=== PATIENT | female | born 2000 | race Caucasian/White ===

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

== ENCOUNTER 2019-07-08 16:24 | Inpatient (IN) | payer BC, MEDICAID ==
[2019-07-08 16:45] LABS: CHLORIDE,CL 104 mEq/L (98-106); SODIUM,NA 138 mEq/L (136-145)
[2019-07-08] MEDS ORDERED: ACETAMINOPHEN WITH CODEINE PO PRN (17:11)
[2019-07-08] MEDS ORDERED: Non-Formulary Medication 1 Each (Ondansetron 8 MG) PO PRN (17:11)
[2019-07-08] MEDS ORDERED: [UNRECOGNIZED DRUG - OTHER] PO PRN (17:11)
[2019-07-08] MEDS ORDERED: Albuterol 8 GM Inhaler INH PRN (17:11)
[2019-07-08] MEDS ORDERED: Ibuprofen 200 MG Tab PO PRN (17:11)
[2019-07-08] MEDS ORDERED: Albuterol 0.083% 2.5 MG/3 ML Neb Soln INH PRN (17:11)
[2019-07-08] MEDS ORDERED: SUMATRIPTAN 50 MG PO SCH (17:15)
[2019-07-08] MEDS ORDERED: cefTRIAXone 1 GM Vial IVPUSH ONE (17:16)
[2019-07-08] MEDS: Pantoprazole 40 MG Vial IVPUSH SCH (17:37)
[2019-07-08] MEDS: Sodium Chloride 0.9% 1,000 ML IV SCH (17:37)
[2019-07-08] MEDS ORDERED: VALACYCLOVIR HCL PO PRN (18:42)
[2019-07-08] MEDS: [UNRECOGNIZED DRUG - REMARK] NAS SCH (19:58)
[2019-07-08] MEDS ORDERED: RANITIDINE HCL PO SCH (20:00)
[2019-07-08] MEDS ORDERED: Gabapentin 100 MG Cap PO SCH (20:00)
[2019-07-09] MEDS: Sodium Chloride 0.9% 1,000 ML IV SCH ×4 (01:28→23:54)
[2019-07-09] MEDS ORDERED: VALACYCLOVIR HCL PO SCH (08:00)
[2019-07-09] MEDS ORDERED: METHYLPHENIDATE HCL 30 MG PO SCH (08:00)
[2019-07-09] MEDS: Ondansetron 4 MG/2 ML SDV IV PRN ×3 (08:21→17:11)
[2019-07-09] MEDS: fentaNYL 100 MCG/2 ML SDV IVPUSH PRN ×3 (08:24→17:35)
[2019-07-09] MEDS: METHYLPHENIDATE 30 MG PO SCH (08:46)
[2019-07-09] MEDS: Venlafaxine 75 MG Cap.ER PO SCH (08:46)
[2019-07-09] MEDS: Gabapentin 100 MG Cap PO SCH ×5 (08:46→19:55)
[2019-07-09] MEDS: MELOXICAM 15 MG PO SCH (08:47)
[2019-07-09] MEDS: MUPIROCIN TOP SCH ×3 (08:48→19:51)
--- NOTE | 2019-07-09 10:13 | PCM.PN ---
- General Info Date of Service: 07/09/19 Admission Dx/Problem (Free Text): RUQ pain Functional Status: Reports: Tolerating Diet, Ambulating, Urinating. Denies: Pain Controlled - Review of Systems General: Reports: Fever, Malaise HEENT: Reports: No Symptoms Pulmonary: Denies: Shortness of Breath, Cough Cardiovascular: Denies: Chest Pain, Edema, Lightheadedness Gastrointestinal: Reports: Abdominal Pain, Nausea. Denies: Decreased Appetite, Diarrhea, Vomiting Genitourinary: Denies: Dysuria Musculoskeletal: Reports: No Symptoms Skin: Reports: No Symptoms Neurological: Reports: No Symptoms - Patient Data Vitals - Most Recent: Last Vital Signs Temp 99.5 F 07/09/19 08:00 Pulse 89 07/09/19 08:00 Resp 16 07/09/19 08:00 BP 105/67 07/09/19 08:00 Pulse Ox 99 07/09/19 08:00 Weight - Most Recent: 162 lb I&O - Last 24 Hours: Intake & Output 07/08/19 07/09/19 07/09/19 22:59 06:59 14:59 Intake Total 981 867 Balance 981 867 Lab Results Last 24 Hours: Laboratory Results - last 24 hr 07/08/19 07/08/19 07/08/19 Range/Units 16:28 16:28 16:28 WBC 5.5 (5.0-10.0) 10^3/uL RBC 4.57 (4.00-5.50) 10^6/uL Hgb 14.1 (12.0-16.0) g/dL Hct 41.9 (37.0-47.0) % MCV 91.7 (82.0-94.0) fL MCH 30.9 (27.0-32.0) pg MCHC 33.7 (33.0-38.0) g/dL RDW Coeff of Ana María 13.0 (11.0-15.0) % Plt Count 269 (150-400) 10^3/uL Neut % (Auto) 47.5 (35-85) % Lymph % (Auto) 39.1 (10-55) % Butler % (Auto) 12.1 (0-16) % Eos % (Auto) 1.1 (0-5) % Baso % (Auto) 0.2 (0-3) % Neut # (Auto) 2.62 (1.80-7.00) 10^3/uL Lymph # (Auto) 2.16 (1.00-4.80) 10^3/uL Butler # (Auto) 0.67 (0.00-0.80) 10^3/uL Eos # (Auto) 0.06 (0.00-0.45) 10^3/uL Baso # (Auto) 0.01 10^3/uL Sodium 138 (136-145) mEq/L Potassium 4.3 (3.5-5.0) mEq/L Chloride 104 (98-106) mEq/L Carbon Dioxide 27 (21-32) mmol/L BUN 13 (7-18) mg/dL Creatinine 0.7 (0.6-1.0) mg/dL Est Cr Clr Drug Dosing TNP Estimated GFR (MDRD) > 60 (>=60) mL/min Glucose 92 (75-99) mg/dL Calcium 9.3 (8.4-10.1) mg/dL Total Bilirubin 0.1 (0.0-1.0) mg/dL AST 23 (15-37) U/L ALT 36 (12-78) U/L Alkaline Phosphatase 82 (46-116) U/L C-Reactive Protein 4.9 H (0.2-0.8) mg/dL Total Protein 7.5 (6.4-8.2) g/dL Albumin 3.9 (3.4-5.0) g/dL Amylase 61 (25-115) U/L Urine Color Yellow (YELLOW) Urine Appearance Clear (CLEAR) Urine pH 6.0 (4.5-8.0) Ur Specific Riner 1.025 H (1.003-1.020) Urine Protein Negative (NEGATIVE) mg/dL Urine Glucose (UA) Negative (NEGATIVE) mg/dL Urine Ketones Negative (NEGATIVE) mg/dL Urine Occult Blood Trace-intact H (NEGATIVE) Urine Nitrite Negative (NEGATIVE) Urine Bilirubin Negative (NEGATIVE) Urine Urobilinogen 0.2 (0.2-1.0) EU/dL Ur Leukocyte Esterase Trace H (NEGATIVE) Urine RBC 0-5 (0-5) /HPF Urine WBC 0-5 (0-5) /HPF Ur Epithelial Cells Moderate H (NOT SEEN) /HPF Urine Bacteria Moderate H (NOT SEEN) /HPF Urine HCG, Qual 07/08/19 07/09/19 07/09/19 Range/Units 16:28 07:00 07:00 WBC 5.2 (5.0-10.0) 10^3/uL RBC 4.12 (4.00-5.50) 10^6/uL Hgb 12.7 (12.0-16.0) g/dL Hct 38.0 (37.0-47.0) % MCV 92.2 (82.0-94.0) fL MCH 30.8 (27.0-32.0) pg MCHC 33.4 (33.0-38.0) g/dL RDW Coeff of Ana María 13.0 (11.0-15.0) % Plt Count 242 (150-400) 10^3/uL Neut % (Auto) 48.0 (35-85) % Lymph % (Auto) 36.6 (10-55) % Butler % (Auto) 13.6 (0-16) % Eos % (Auto) 1.4 (0-5) % Baso % (Auto) 0.4 (0-3) % Neut # (Auto) 2.48 (1.80-7.00) 10^3/uL Lymph # (Auto) 1.89 (1.00-4.80) 10^3/uL Butler # (Auto) 0.70 (0.00-0.80) 10^3/uL Eos # (Auto) 0.07 (0.00-0.45) 10^3/uL Baso # (Auto) 0.02 10^3/uL Sodium (136-145) mEq/L Potassium (3.5-5.0) mEq/L Chloride (98-106) mEq/L Carbon Dioxide (21-32) mmol/L BUN (7-18) mg/dL Creatinine (0.6-1.0) mg/dL Est Cr Clr Drug Dosing Estimated GFR (MDRD) (>=60) mL/min Glucose (75-99) mg/dL Calcium (8.4-10.1) mg/dL Total Bilirubin (0.0-1.0) mg/dL AST (15-37) U/L ALT (12-78) U/L Alkaline Phosphatase (46-116) U/L C-Reactive Protein 3.4 H (0.2-0.8) mg/dL Total Protein (6.4-8.2) g/dL Albumin (3.4-5.0) g/dL Amylase (25-115) U/L Urine Color (YELLOW) Urine Appearance (CLEAR) Urine pH (4.5-8.0) Ur Specific Riner (1.003-1.020) Urine Protein (NEGATIVE) mg/dL Urine Glucose (UA) (NEGATIVE) mg/dL Urine Ketones (NEGATIVE) mg/dL Urine Occult Blood (NEGATIVE) Urine Nitrite (NEGATIVE) Urine Bilirubin (NEGATIVE) Urine Urobilinogen (0.2-1.0) EU/dL Ur Leukocyte Esterase (NEGATIVE) Urine RBC (0-5) /HPF Urine WBC (0-5) /HPF Ur Epithelial Cells (NOT SEEN) /HPF Urine Bacteria (NOT SEEN) /HPF Urine HCG, Qual Negative Med Orders - Current: Current Medications Acetaminophen (Tylenol) 650 mg PO Q4H PRN PRN Reason: Pain (Mild 1-3)/fever Albuterol (Proventil Neb Soln) 2.5 mg INH Q4H PRN PRN Reason: Shortness of Breath Fentanyl (Sublimaze) 25 - 50 mcg IVPUSH Q4H PRN PRN Reason: Pain Last Admin: 07/09/19 08:24 Dose: 25 mcg Gabapentin (Neurontin) 200 mg PO TID [facility] Last Admin: 07/09/19 08:49 Dose: Not Given Sodium Chloride (Normal Saline) 1,000 mls @ 125 mls/hr IV ASDIRECTED [facility] Last Admin: 07/09/19 08:24 Dose: 125 mls/hr Ibuprofen (Motrin) 200 mg PO Q6H PRN PRN Reason: Pain/Fever Mupirocin (Bactroban Oint) 0 gm TOP BID [facility] Last Admin: 07/09/19 08:49 Dose: Not Given Ownmed Meloxicam (15 Mg) 15 mg PO DAILY [facility] Last Admin: 07/09/19 08:47 Dose: Not Given Ownmed Methylphenidate Hcl [Ritalin] 30 Mg 30 mg PO DAILY [facility] Last Admin: 07/09/19 08:46 Dose: 30 mg Triamcinolone Acetonide [24 Hour Nasal Allergy] Nasal [place] Own Med 1 spray SHELBY BEDTIME [facility] Last Admin: 07/08/19 19:58 Dose: 1 spray Ondansetron HCl (Zofran) 4 mg IV Q4H PRN PRN Reason: Nausea/Vomiting Last Admin: 07/09/19 08:21 Dose: 4 mg Pantoprazole Sodium (Protonix Iv) 40 mg IVPUSH Q24H [facility] Last Admin: 07/08/19 17:37 Dose: 40 mg Venlafaxine HCl (Effexor Xr) 75 mg PO DAILY [facility] Last Admin: 07/09/19 08:46 Dose: 75 mg Discontinued Medications Albuterol (Ventolin Hfa) gm INH Q4H PRN PRN Reason: Shortness of Breath Ceftriaxone Sodium (Rocephin) 1 gm IVPUSH ONETIME ONE Stop: 07/08/19 17:17 Last Admin: 07/08/19 17:37 Dose: 1 gm Gabapentin (Neurontin) 100 mg PO BID [facility] Non-Formulary Medication (Acetaminophen With Codeine [Tylenol With Codeine #3 Tablet]) 1 tab PO BID PRN PRN Reason: Pain Non-Formulary Medication (Methylphenidate Hcl [Methylphenidate La]) 30 mg PO DAILY [facility] Non-Formulary Medication (Ondansetron) 8 mg PO Q8H PRN PRN Reason: Nausea Non-Formulary Medication (Ranitidine Hcl [Ranitidine]) 1 cap PO BEDTIME [facility] Last Admin: 07/09/19 08:49 Dose: Not Given Non-Formulary Medication (Sumatriptan [Imitrex]) 50 mg PO ASDIRECTED [facility] Non-Formulary Medication (Valacyclovir Hcl [Valacyclovir]) 1 tab PO DAILY [facility] Non-Formulary Medication (Valacyclovir Hcl [Valacyclovir]) 1 tab PO ASDIRECTED PRN PRN Reason: Other - Exam General: Alert, Oriented, No Acute Distress HEENT: Mucous Membr. Moist/[place] Neck: Supple Lungs: Clear to Auscultation, Normal Respiratory Effort Cardiovascular: Regular Rate, Regular Rhythm GI/Abdominal Exam: Normal Bowel Sounds, Soft, Tender (RUQ, right mid quadrant tenderness with palpation) Extremities: Normal Inspection, No Pedal Edema Skin: Warm, Dry Neurological: No New Focal Deficit - Problem List & Annotations (1) RUQ abdominal pain SNOMED Code(s): 393270519 Code(s): R10.11 - RIGHT UPPER QUADRANT PAIN Status: Acute Priority: High Current Visit: Yes - Problem List Review Problem List Initiated/Reviewed/Updated: Yes - My Orders Last 24 Hours: My Active Orders 07/09/19 09:16 Abdomen Pelvis w Cont [CT] Routine - Assessment Assessment:: RUQ abdominal pain - Plan Plan:: Patient alert, states pain a 10/10 at present in RUQ. Does not appear to be in any acute distress, resting on back. Asking for fluids as "is hungry" yet complaining of nausea. Not passing any flatus "but feels like needs to". Low grade temps through the night. Abdomen is soft, nondistended. Tender to minimal touch in RUQ, right mid quadrant. Labs all remain relatively normal this am. WBC 5.2. CRP improved to 3.4. Had gallbladder ultrasound this am, appears benign. Mother questions if "related to anxiety as she has been having one problem after another and has been doctoring a great deal without any positive findings". Questions if needs med adjustments. Due to ongoing complaints of pain, will proceed with CT scan to rule out any organic source of pain. continue clear liquids at this time. IV fluids as directed.
[2019-07-09] MEDS ORDERED: Iopamidol 755 Mg/ML 100 ML Bottle IVPUSH ONE (11:39)
[2019-07-09] MEDS ORDERED: Barium Sulfate Oral Susp 450 ML Bottle PO ONE (11:39)
[2019-07-09] MEDS: Acetaminophen 325 MG Tab PO PRN ×2 (12:42→23:16)
[2019-07-09] MEDS ORDERED: Alum Hydrox/Mag Hydrox/Simeth 30 ML, Lidocaine 2% 15 ML PO ONE ×2 (13:06)
[2019-07-09] MEDS: Acetaminophen/HYDROcodone 325-5 MG Tab PO PRN ×2 (16:49→23:15)
[2019-07-09] MEDS: Pantoprazole 40 MG Vial IVPUSH SCH (16:52)
[2019-07-09] MEDS: [UNRECOGNIZED DRUG - REMARK] NAS SCH (19:52)
[2019-07-10] MEDS: fentaNYL 100 MCG/2 ML SDV IVPUSH PRN (05:50)
[2019-07-10] MEDS ORDERED: Lactated Ringers 1,000 ML IV STA (08:12)
[2019-07-10] MEDS ORDERED: Benzocaine 20% Oral Spray 59.2 ML Canister MUCMEM ONE (08:35)
[2019-07-10] MEDS ORDERED: Meperidine PF 25 MG/ML Syringe IV ONE ×2 (08:47→08:49)
[2019-07-10] MEDS ORDERED: Midazolam 1 MG/ML 2 ML SDV IV ONE (08:48)
[2019-07-10] MEDS: MUPIROCIN TOP SCH ×2 (10:24→19:36)
[2019-07-10] MEDS: Venlafaxine 75 MG Cap.ER PO SCH (10:25)
[2019-07-10] MEDS: MELOXICAM 15 MG PO SCH (10:26)
[2019-07-10] MEDS: METHYLPHENIDATE 30 MG PO SCH (10:27)
[2019-07-10] MEDS: Gabapentin 100 MG Cap PO SCH ×3 (10:27→19:43)
[2019-07-10] MEDS: Pantoprazole 40 MG Vial IVPUSH SCH ×2 (10:28→19:38)
[2019-07-10] MEDS: Sodium Chloride 0.9% 1,000 ML IV SCH ×2 (11:54→20:12)
[2019-07-10] MEDS: Ondansetron 4 MG/2 ML SDV IV PRN ×2 (11:59→21:31)
[2019-07-10] MEDS: Sucralfate 1 GM Tab PO SCH ×3 (12:00→19:45)
[2019-07-10] MEDS: Acetaminophen 325 MG Tab PO PRN (12:08)
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
[2019-07-10] MEDS: [UNRECOGNIZED DRUG - REMARK] NAS SCH (19:37)
[2019-07-10] MEDS ORDERED: FLUoxetine 10 MG Cap PO SCH (20:00)
[2019-07-10] MEDS ORDERED: busPIRone 5 MG Tab PO SCH (20:00)
--- NOTE | 2019-07-10 20:41 | PCM.PN ---
- General Info Date of Service: 07/10/19 Admission Dx/Problem (Free Text): RUQ pain Functional Status: Reports: Tolerating Diet, Ambulating. Denies: Pain Controlled - Review of Systems General: Reports: Fever, Fatigue, Malaise HEENT: Reports: No Symptoms Pulmonary: Denies: Shortness of Breath, Cough Cardiovascular: Denies: Chest Pain, Palpitations, Lightheadedness Gastrointestinal: Reports: Abdominal Pain, Nausea. Denies: Decreased Appetite, Vomiting Genitourinary: Reports: No Symptoms Musculoskeletal: Reports: No Symptoms Skin: Reports: No Symptoms Neurological: Reports: No Symptoms Psychiatric: Reports: Anxiety - Patient Data Vitals - Most Recent: Last Vital Signs Temp 99.5 F 07/10/19 20:00 Pulse 102 H 07/10/19 20:00 Resp 20 07/10/19 20:00 BP 114/76 07/10/19 20:00 Pulse Ox 98 07/10/19 20:00 Weight - Most Recent: 162 lb I&O - Last 24 Hours: Intake & Output 07/10/19 07/10/19 07/10/19 06:59 14:59 22:59 Intake Total 877 1000 1000 Balance 877 1000 1000 Med Orders - Current: Current Medications Acetaminophen (Tylenol) 650 mg PO Q4H PRN PRN Reason: Pain (Mild 1-3)/fever Last Admin: 07/10/19 12:08 Dose: 650 mg Hydrocodone Bitart/Acetaminophen ([place] 325-5 Mg) 1 tab PO Q6H PRN PRN Reason: Pain Last Admin: 07/09/19 23:15 Dose: 1 tab Albuterol (Proventil Neb Soln) 2.5 mg INH Q4H PRN PRN Reason: Shortness of Breath Buspirone HCl (Buspar) 7.5 mg PO BEDTIME JIN Last Admin: 07/10/19 19:42 Dose: 7.5 mg Fentanyl (Sublimaze) 25 - 50 mcg IVPUSH Q4H PRN PRN Reason: Pain Last Admin: 07/10/19 05:50 Dose: 25 mcg Fluoxetine HCl (Prozac) 10 mg PO BEDTIME JIN Stop: 07/12/19 20:01 Last Admin: 07/10/19 19:43 Dose: 10 mg Gabapentin (Neurontin) 200 mg PO TID JIN Last Admin: 07/10/19 19:43 Dose: 200 mg Sodium Chloride (Normal Saline) 1,000 mls @ 125 mls/hr IV ASDIRECTED [facility] Last Admin: 07/10/19 20:12 Dose: 125 mls/hr Mupirocin (Bactroban Oint) 0 gm TOP BID [facility] Last Admin: 07/10/19 19:36 Dose: Not Given Ownmed Meloxicam (15 Mg) 15 mg PO DAILY [facility] Last Admin: 07/10/19 10:26 Dose: Not Given Ownmed Methylphenidate Hcl [Ritalin] 30 Mg 30 mg PO DAILY [facility] Last Admin: 07/10/19 10:27 Dose: 30 mg Triamcinolone Acetonide [24 Hour Nasal Allergy] Nasal [place] Own Med 1 spray SHELBY BEDTIME [facility] Last Admin: 07/10/19 19:37 Dose: 1 spray Ondansetron HCl (Zofran) 4 mg IV Q4H PRN PRN Reason: Nausea/Vomiting Last Admin: 07/10/19 11:59 Dose: 4 mg Pantoprazole Sodium (Protonix Iv) 40 mg IVPUSH BID [facility] Last Admin: 07/10/19 19:38 Dose: 40 mg Sucralfate (Carafate) 1 gm PO QIDACANDBED [facility] Last Admin: 07/10/19 19:45 Dose: 1 gm Discontinued Medications Albuterol (Ventolin Hfa) gm INH Q4H PRN PRN Reason: Shortness of Breath Barium Sulfate (Readi-Cat 2) 900 ml PO ONETIME ONE Stop: 07/09/19 11:40 Last Admin: 07/09/19 11:55 Dose: 900 ml Benzocaine (Hurricaine 20% [place]) 1 ml MUCMEM .STK-MED ONE Stop: 07/10/19 08:36 Last Admin: 07/10/19 08:35 Dose: 1 ml Ceftriaxone Sodium (Rocephin) 1 gm IVPUSH ONETIME ONE Stop: 07/08/19 17:17 Last Admin: 07/08/19 17:37 Dose: 1 gm Al Hydroxide/Mg Hydroxide 30 (ml/ Lidocaine HCl 15 ml) 0 ml PO ONETIME ONE Stop: 07/09/19 13:07 Last Admin: 07/09/19 13:39 Dose: 45 ml Gabapentin (Neurontin) 100 mg PO BID [facility] Lactated Ringer's (Ringers, Lactated) 1,000 mls @ 125 mls/hr IV NOW STA Stop: 07/10/19 16:11 Last Admin: 07/10/19 08:24 Dose: 125 mls/hr Ibuprofen (Motrin) 200 mg PO Q6H PRN PRN Reason: Pain/Fever Iopamidol (Isovue-370 (76%)) 100 ml IVPUSH ONETIME ONE Stop: 07/09/19 11:40 Last Admin: 07/09/19 11:54 Dose: 100 ml Meperidine HCl (Demerol) 25 mg IV .STK-MED ONE Stop: 07/10/19 08:48 Last Admin: 07/10/19 08:47 Dose: 25 mg Meperidine HCl (Demerol) 25 mg IV .STK-MED ONE Stop: 07/10/19 08:50 Last Admin: 07/10/19 08:49 Dose: 25 mg Midazolam HCl (Versed 1 Mg/Ml) 4 mg IV .STK-MED ONE Stop: 07/10/19 08:49 Last Admin: 07/10/19 08:48 Dose: 4 mg Non-Formulary Medication (Acetaminophen With Codeine [Tylenol With Codeine #3 Tablet]) 1 tab PO BID PRN PRN Reason: Pain Non-Formulary Medication (Methylphenidate Hcl [Methylphenidate La]) 30 mg PO DAILY [facility] Non-Formulary Medication (Ondansetron) 8 mg PO Q8H PRN PRN Reason: Nausea Non-Formulary Medication (Ranitidine Hcl [Ranitidine]) 1 cap PO BEDTIME [facility] Last Admin: 07/09/19 08:49 Dose: Not Given Non-Formulary Medication (Sumatriptan [Imitrex]) 50 mg PO ASDIRECTED [facility] Non-Formulary Medication (Valacyclovir Hcl [Valacyclovir]) 1 tab PO DAILY [facility] Non-Formulary Medication (Valacyclovir Hcl [Valacyclovir]) 1 tab PO ASDIRECTED PRN PRN Reason: Other Pantoprazole Sodium (Protonix Iv) 40 mg IVPUSH Q24H [facility] Last Admin: 07/09/19 16:52 Dose: 40 mg Venlafaxine HCl (Effexor Xr) 75 mg PO DAILY [facility] Last Admin: 07/10/19 10:25 Dose: 75 mg - Exam General: Alert, Oriented HEENT: Mucous Membr. Moist/[place] Neck: Supple Lungs: Clear to Auscultation, Normal Respiratory Effort Cardiovascular: Regular Rate, Regular Rhythm GI/Abdominal Exam: Normal Bowel Sounds, Soft, Tender (RUQ. Is less guarded this am with exam) Extremities: Normal Inspection, No Pedal Edema Skin: Warm, Dry Neurological: No New Focal Deficit - Problem List & Annotations (1) RUQ abdominal pain SNOMED Code(s): 763931271 Code(s): R10.11 - RIGHT UPPER QUADRANT PAIN Status: Acute Priority: High Current Visit: Yes - Problem List Review Problem List Initiated/Reviewed/Updated: Yes - My Orders Last 24 Hours: My Active Orders 07/09/19 20:06 Notify Provider Consults [RC] ASDIRECTED Consult to Physician [CONS] Routine 07/10/19 09:05 Patient Status [ADT] Routine 07/10/19 09:15 Pantoprazole [ProTONIX IV] 40 mg IVPUSH BID 07/10/19 11:00 Sucralfate [Carafate] 1 gm PO QIDACANDBED 07/10/19 20:00 FLUoxetine [PROzac] 10 mg PO BEDTIME busPIRone [Buspar] 7.5 mg PO BEDTIME 07/10/19 Lunch Soft Diet [DIET] 07/11/19 08:00 Abdomen wo Cont [MR] Routine - Assessment Assessment:: RUQ abdominal pain - Plan Plan:: Patient alert, states pain a 10/10 at present in RUQ. Does not appear to be in any acute distress, resting on back. Asking for fluids as "is hungry" yet complaining of nausea. Not passing any flatus "but feels like needs to". Low grade temps through the night. Abdomen is soft, nondistended. Tender to minimal touch in RUQ, right mid quadrant. Labs all remain relatively normal this am. WBC 5.2. CRP improved to 3.4. Had gallbladder ultrasound this am, appears benign. Mother questions if "related to anxiety as she has been having one problem after another and has been doctoring a great deal without any positive findings". Questions if needs med adjustments. Due to ongoing complaints of pain, will proceed with CT scan to rule out any organic source of pain. continue clear liquids at this time. IV fluids as directed. 07-10-2019 Patient resting quietly in bed, no acute distress. Still complains of severe pain and nausea. Had multiple complaints yesterday of pain, burning in chest, weakness, increased anxiety. Low grade temps through night. States placed ice pack to abdomen and it has helped. Is NPO this am, awaiting EGD as CT yesterday indicated possible thickening of the gastric cardia/GE junction. Abdomen is soft, tender but she is less guarded today with exam. Not yet passing flatus per patient. Proceed with EGD. Pain meds as directed.
[2019-07-11] MEDS: Sodium Chloride 0.9% 1,000 ML IV SCH (04:26)
[2019-07-11] MEDS: Sucralfate 1 GM Tab PO SCH ×2 (06:09→10:57)
[2019-07-11 07:50] LABS: CHLORIDE,CL 107 mEq/L (98-106); SODIUM,NA 142 mEq/L (136-145)
[2019-07-11] MEDS: Pantoprazole 40 MG Vial IVPUSH SCH (08:14)
[2019-07-11] MEDS: MUPIROCIN TOP SCH (08:14)
[2019-07-11] MEDS ORDERED: Polyethylene Glycol 3350 Powder 17 GM Packet PO ONE (08:29)
[2019-07-11] MEDS: Acetaminophen/HYDROcodone 325-5 MG Tab PO PRN (09:21)
[2019-07-11] MEDS: Gabapentin 100 MG Cap PO SCH ×2 (09:22→13:10)
[2019-07-11] MEDS: MELOXICAM 15 MG PO SCH (09:23)
[2019-07-11] MEDS: METHYLPHENIDATE 30 MG PO SCH (09:25)
--- NOTE | 2019-07-11 12:40 | OR ---
DATE OF OPERATION: 07/10/2019 PREOPERATIVE DIAGNOSIS: RIGHT UPPER QUADRANT PAIN. POSTOPERATIVE DIAGNOSIS: RIGHT UPPER QUADRANT PAIN. SURGEON: Kevin Byers MD PROCEDURE: EGD WITH BIOPSIES X2, LINDA. ANESTHESIA: Conscious sedation with a total of 50 mg fentanyl and 4 mg Versed with continuous O2 sat monitoring nurse assist, oxygen saturation remained above 90% for the entire procedure. COMPLICATIONS: None. SPECIMEN: 1. Antral biopsy x2. 2. Antral LINDA. FINDINGS: 1. Full-length EGD. 2. Minimal antral gastritis. 3. No signs of any significant peptic ulcer disease. RECOMMENDATIONS: Ongoing medical followup. INDICATIONS: Shi was admitted with what she described as severe right upper quadrant pain. Thus far, lab and imaging have failed to give us an etiology including a gallbladder ultrasound. We elected to proceed with diagnostic EGD. DESCRIPTION OF PROCEDURE: The patient was prepped and draped, placed in the left lateral decubitus position. A lubricated Olympus gastroscope was inserted over a bit and advanced to cricopharyngeus area and easily intubated into the esophagus. The esophageal lining was benign in its entire course. The Z-line was crisp and sharp at 39.5 cm. No signs of hiatal hernia. No reflux, distal esophagitis, stricturing, or ulceration. The scope advanced into the stomach, through the pylorus, and into the second portion of the duodenum. This and the duodenal bulb were completely benign. The scope was brought back into the stomach. It was difficult to retroflex as patient was very agitated during the exam, but we were able to get a relatively good but brief look at the upper fundus and cardia. They appeared grossly benign. Upon straightening, the rest of the fundus and antrum were essentially unremarkable. There may have been some very mild antral gastritis. No ulceration or erosions. I did do 2 biopsies along with a CLOtest. No other masses or lesions were seen. Air was suctioned and the scope removed without complication. The patient was stable in her hospital bed in recovery. JONATHAN/JAMARCUS /[id number]
[2019-07-11] MEDS: Ondansetron 4 MG/2 ML SDV IV PRN (13:08)
--- NOTE | 2019-07-11 15:11 | PCM.DCSUM1 ---
Discharge Summary - Hospital Course Free Text/Narrative:: Patient presented to see Dr. Byers with a one day history of RUQ/RLQ abdominal pain. Pain constant. Worsened with eating/drinking and with movement. History of GERD. Has been compliant with her meds. Mild nausea and fever. Labs done, all normal. Admitted for IV fluids, plan for GB ultrasound in am. Diagnosis: Stroke: No Modified [place] Scale: No Symptoms at All Modified [place] Scale Score: 0 - Discharge Data Discharge Date: 07/11/19 Discharge Disposition: Home, Self-Care 01 Condition: Good - Referral to Home Health Primary Care Physician: Kevin Byers MD - Discharge Diagnosis/Problem(s) (1) RUQ abdominal pain SNOMED Code(s): 472620947 ICD Code: R10.11 - RIGHT UPPER QUADRANT PAIN Status: Acute Priority: High - Patient Summary/Data Complications: none Consults: Consultations 07/09/19 20:06 Consult to Physician [CONS] Routine Hospital Course: Patient continues to complain of abdominal pain, especially in the right upper quadrant. Patient did have gallbladder ultrasound, was negative. Proceed with CT scan of abdomen as continued to complain of pain at a 10/08. CT scan showed mild thickening to cardia/GE junction, otherwise normal CT. Proceeded with EGD , minimal gastritis noted. Is on IV protonix. Has been taking IV Fentanyl, [place] and was given GI cocktail, none of which provide the patient any relief. Also complaints of intermittent nausea. Has had low grade fevers. Labs have remained normal throughout stay. As unable to find source of pain, did proceed with MRCP of abdomen, also normal. Mother had felt part of patient's concerns, may be related to anxiety. Did have Lina Jackson consult with patient. Meds switched. Patient asking for second opinion as all tests normal and still complaining of pain. Contacted Dr. Palumbo's office and spoke with nurse. We do feel next step is a HIDA scan but will see surgeon on Sunday for second opinion. Discharge home on Protonix, Mcgregor for the pain. See Dr. Palumbo on Sunday - Patient Instructions Diet: Regular Diet as Tolerated Activity: As Tolerated - Discharge Plan *PRESCRIPTION DRUG MONITORING PROGRAM REVIEWED*: No *COPY OF PRESCRIPTION DRUG MONITORING REPORT IN PATIENT BRITNEY: No Prescriptions/Med Rec: Acetaminophen/HYDROcodone [[place] 325-5 MG] 1 tab PO Q6H PRN #12 tablet PRN Reason: Pain busPIRone [Buspar] 7.5 mg PO BID #30 tab FLUoxetine [PROzac] 10 mg PO BEDTIME #30 cap Pantoprazole Sodium [Protonix] 40 mg PO DAILY #30 tablet. Home Medications: Home Meds Acetaminophen [Tylenol Extra Strength] 500 mg PO Q4H PRN 05/16/18 [History] Albuterol Sulfate 2.5 mg IH ASDIRECTED PRN 05/16/18 [History] Albuterol [Ventolin HFA] 1 - 2 puff INH Q4H PRN 05/16/18 [History] Desonide 1 applic TP DAILY PRN 05/16/18 [History] Ondansetron [Ondansetron ODT] 8 mg PO Q8H PRN 05/16/18 [History] Acetaminophen with Codeine [Tylenol with Codeine #3 Tablet] 1 tab PO BID PRN 08/16 [History] Gabapentin [Neurontin] 2 tab PO TID 07/08/19 [History] Lidocaine 5% 1 applic TOP Q4H PRN 07/08/19 [History] Meloxicam 15 mg PO DAILY 07/08/19 [History] Methylphenidate HCl [Ritalin] 5 mg PO DAILY 07/08/19 [History] Mupirocin Oint [Bactroban Oint] 1 applic TOP BID 07/08/19 [History] Ranitidine HCl [Ranitidine] 1 cap PO BEDTIME 07/08/19 [History] Triamcinolone Acetonide [24 Hour Nasal Allergy] 1 spray SHELBY BEDTIME 07/08/19 [ History] medroxyPROGESTERone Acetate [Depo-Provera] 1 injection IM ASDIRECTED 07/08/19 [ History] Acetaminophen/HYDROcodone [[place] 325-5 MG] 1 tab PO Q6H PRN #12 tablet 07/11/19 [Rx] FLUoxetine [PROzac] 10 mg PO BEDTIME #30 cap 07/11/19 [Rx] Pantoprazole Sodium [Protonix] 40 mg PO DAILY #30 tablet. 07/11/19 [Rx] busPIRone [Buspar] 7.5 mg PO BID #30 tab 07/11/19 [Rx] Patient Handouts: Gastritis, Adult Referrals: Brock Palumbo IV, MD [Ordering Only Provider] - (Has appointment with Dr. Palumbo on Sunday, June 13, 2019) - Discharge Summary/Plan Comment DC Time >30 min.: No Discharge Summary/Plan Comment: Home with mother Protonix for gastritis Mcgregor for pain See Dr. Palumbo on Sunday - General Info Date of Service: 07/11/19 Admission Dx/Problem (Free Text: RUQ pain Functional Status: Reports: Tolerating Diet, Ambulating. Denies: Pain Controlled - Review of Systems General: Denies: Fever, Weakness, Fatigue HEENT: Reports: Sore Throat Pulmonary: Denies: Shortness of Breath, Cough Cardiovascular: Denies: Chest Pain, Edema, Lightheadedness Gastrointestinal: Reports: Abdominal Pain, Nausea. Denies: Vomiting Genitourinary: Reports: No Symptoms Musculoskeletal: Reports: No Symptoms Skin: Reports: No Symptoms Neurological: Reports: No Symptoms Psychiatric: Reports: No Symptoms - Patient Data Vitals - Most Recent: Last Vital Signs Temp 99.1 F 07/11/19 12:00 Pulse 106 H 07/11/19 12:00 Resp 18 07/11/19 12:00 BP 128/94 H 07/11/19 12:00 Pulse Ox 99 07/11/19 12:00 Weight - Most Recent: 162 lb I&O - Last 24 hours: Intake & Output 07/11/19 07/11/19 07/11/19 06:59 14:59 22:59 Intake Total 1000 Balance 1000 Lab Results - Last 24 hrs: Laboratory Results - last 24 hr 07/11/19 07/11/19 Range/Units 07:00 07:00 WBC 4.0 L (5.0-10.0) 10^3/uL RBC 4.26 (4.00-5.50) 10^6/uL Hgb 13.1 (12.0-16.0) g/dL Hct 39.2 (37.0-47.0) % MCV 92.0 (82.0-94.0) fL MCH 30.8 (27.0-32.0) pg MCHC 33.4 (33.0-38.0) g/dL RDW Coeff of Ana María 12.8 (11.0-15.0) % Plt Count 280 (150-400) 10^3/uL Neut % (Auto) 37.9 (35-85) % Lymph % (Auto) 47.3 (10-55) % [place] % (Auto) 13.6 (0-16) % Eos % (Auto) 1.0 (0-5) % Baso % (Auto) 0.2 (0-3) % Neut # (Auto) 1.53 L (1.80-7.00) 10^3/uL Lymph # (Auto) 1.91 (1.00-4.80) 10^3/uL [place] # (Auto) 0.55 (0.00-0.80) 10^3/uL Eos # (Auto) 0.04 (0.00-0.45) 10^3/uL Baso # (Auto) 0.01 10^3/uL Sodium 142 (136-145) mEq/L Potassium 3.8 (3.5-5.0) mEq/L Chloride 107 H (98-106) mEq/L Carbon Dioxide 26 (21-32) mmol/L BUN 4 L D (7-18) mg/dL Creatinine 0.7 (0.6-1.0) mg/dL Est Cr Clr Drug Dosing 110.70 mL/min Estimated GFR (MDRD) > 60 (>=60) mL/min Glucose 93 (75-99) mg/dL Calcium 8.6 (8.4-10.1) mg/dL Total Bilirubin 0.1 (0.0-1.0) mg/dL AST 15 (15-37) U/L ALT 20 (12-78) U/L Alkaline Phosphatase 66 (46-116) U/L C-Reactive Protein 4.5 H (0.2-0.8) mg/dL Total Protein 6.5 (6.4-8.2) g/dL Albumin 3.1 L (3.4-5.0) g/dL MJ Results - Last 24 hrs: Microbiology 07/10/19 09:18 CLOtest - Final Stomach NEGATIVE CLOTEST REFERENCE RANGE: NEGATIVE Med Orders - Current: Current Medications Acetaminophen (Tylenol) 650 mg PO Q4H PRN PRN Reason: Pain (Mild 1-3)/fever Last Admin: 07/10/19 12:08 Dose: 650 mg Hydrocodone Bitart/Acetaminophen ([place] 325-5 Mg) 1 tab PO Q6H PRN PRN Reason: Pain Last Admin: 07/11/19 09:21 Dose: 1 tab Albuterol (Proventil Neb Soln) 2.5 mg INH Q4H PRN PRN Reason: Shortness of Breath Buspirone HCl (Buspar) 7.5 mg PO BEDTIME [facility] Last Admin: 07/10/19 19:42 Dose: 7.5 mg Fentanyl (Sublimaze) 25 - 50 mcg IVPUSH Q4H PRN PRN Reason: Pain Last Admin: 07/10/19 05:50 Dose: 25 mcg Fluoxetine HCl (Prozac) 10 mg PO BEDTIME [facility] Stop: 07/12/19 20:01 Last Admin: 07/10/19 19:43 Dose: 10 mg Gabapentin (Neurontin) 200 mg PO TID [facility] Last Admin: 07/11/19 13:10 Dose: 200 mg Sodium Chloride (Normal Saline) 1,000 mls @ 125 mls/hr IV ASDIRECTED [facility] Last Admin: 07/11/19 04:26 Dose: 125 mls/hr Mupirocin (Bactroban Oint) 0 gm TOP BID [facility] Last Admin: 07/11/19 08:14 Dose: Not Given Ownmed Meloxicam (15 Mg) 15 mg PO DAILY [facility] Last Admin: 07/11/19 09:23 Dose: Not Given Ownmed Methylphenidate Hcl [Ritalin] 30 Mg 30 mg PO DAILY [facility] Last Admin: 07/11/19 09:25 Dose: 30 mg Triamcinolone Acetonide [24 Hour Nasal Allergy] Nasal [place] Own Med 1 spray SHELBY BEDTIME [facility] Last Admin: 07/10/19 19:37 Dose: 1 spray Ondansetron HCl (Zofran) 4 mg IV Q4H PRN PRN Reason: Nausea/Vomiting Last Admin: 07/11/19 13:08 Dose: 4 mg Pantoprazole Sodium (Protonix Iv) 40 mg IVPUSH BID [facility] Last Admin: 07/11/19 08:14 Dose: 40 mg Sucralfate (Carafate) 1 gm PO QIDACANDBED [facility] Last Admin: 07/11/19 10:57 Dose: 1 gm Discontinued Medications Albuterol (Ventolin Hfa) gm INH Q4H PRN PRN Reason: Shortness of Breath Barium Sulfate (Readi-Cat 2) 900 ml PO ONETIME ONE Stop: 07/09/19 11:40 Last Admin: 07/09/19 11:55 Dose: 900 ml Benzocaine (Hurricaine 20% [place]) 1 ml MUCMEM .STK-MED ONE Stop: 07/10/19 08:36 Last Admin: 07/10/19 08:35 Dose: 1 ml Ceftriaxone Sodium (Rocephin) 1 gm IVPUSH ONETIME ONE Stop: 07/08/19 17:17 Last Admin: 07/08/19 17:37 Dose: 1 gm Al Hydroxide/Mg Hydroxide 30 (ml/ Lidocaine HCl 15 ml) 0 ml PO ONETIME ONE Stop: 07/09/19 13:07 Last Admin: 07/09/19 13:39 Dose: 45 ml Gabapentin (Neurontin) 100 mg PO BID JIN Lactated Ringer's (Ringers, Lactated) 1,000 mls @ 125 mls/hr IV NOW STA Stop: 07/10/19 16:11 Last Admin: 07/10/19 08:24 Dose: 125 mls/hr Ibuprofen (Motrin) 200 mg PO Q6H PRN PRN Reason: Pain/Fever Iopamidol (Isovue-370 (76%)) 100 ml IVPUSH ONETIME ONE Stop: 07/09/19 11:40 Last Admin: 07/09/19 11:54 Dose: 100 ml Meperidine HCl (Demerol) 25 mg IV .STK-MED ONE Stop: 07/10/19 08:48 Last Admin: 07/10/19 08:47 Dose: 25 mg Meperidine HCl (Demerol) 25 mg IV .STK-MED ONE Stop: 07/10/19 08:50 Last Admin: 07/10/19 08:49 Dose: 25 mg Midazolam HCl (Versed 1 Mg/Ml) 4 mg IV .STK-MED ONE Stop: 07/10/19 08:49 Last Admin: 07/10/19 08:48 Dose: 4 mg Non-Formulary Medication (Acetaminophen With Codeine [Tylenol With Codeine #3 Tablet]) 1 tab PO BID PRN PRN Reason: Pain Non-Formulary Medication (Methylphenidate Hcl [Methylphenidate La]) 30 mg PO DAILY JIN Non-Formulary Medication (Ondansetron) 8 mg PO Q8H PRN PRN Reason: Nausea Non-Formulary Medication (Ranitidine Hcl [Ranitidine]) 1 cap PO BEDTIME [facility] Last Admin: 07/09/19 08:49 Dose: Not Given Non-Formulary Medication (Sumatriptan [Imitrex]) 50 mg PO ASDIRECTED [facility] Non-Formulary Medication (Valacyclovir Hcl [Valacyclovir]) 1 tab PO DAILY [facility] Non-Formulary Medication (Valacyclovir Hcl [Valacyclovir]) 1 tab PO ASDIRECTED PRN PRN Reason: Other Pantoprazole Sodium (Protonix Iv) 40 mg IVPUSH Q24H [facility] Last Admin: 07/09/19 16:52 Dose: 40 mg Polyethylene Glycol (Miralax) 17 gm PO ONETIME ONE Stop: 07/11/19 08:30 Last Admin: 07/11/19 09:21 Dose: 17 gm Venlafaxine HCl (Effexor Xr) 75 mg PO DAILY [facility] Last Admin: 07/10/19 10:25 Dose: 75 mg - Exam General: Reports: Alert, Oriented HEENT: Reports: Mucous Membr. Moist/[place] Neck: Reports: Supple Lungs: Reports: Clear to Auscultation, Normal Respiratory Effort Cardiovascular: Reports: Regular Rate, Regular Rhythm GI/Abdominal Exam: Normal Bowel Sounds, Soft, Tender (RUQ) Extremities: Normal Inspection, No Pedal Edema Skin: Reports: Warm, Dry Neurological: Reports: No New Focal Deficit
== END 2019-07-11 15:05 | disposition home or self-care (01) | DRG 241 ==
LOC: CC.MS 16:24 → CC.FCMC 16:24 → CC.MS 16:56 → UNDOADMOB 16:56 → CC.MS 17:00 → OBSVTOIN 07-10 09:05
PROVIDERS: ADMIT Family Medicine; ATTEND Family Medicine
PROC: 0DB78ZX Excision of Stomach, Pylorus, Via Natural or Artificial Opening Endoscopic, Diagnostic (ICD-10-PCS; principal; 2019-07-10)
DX: K29.70 Gastritis, unspecified, without bleeding (principal); K21.9 Gastro-esophageal reflux disease without esophagitis; F41.8 Other specified anxiety disorders; J45.909 Unspecified asthma, uncomplicated; F90.9 Attention-deficit hyperactivity disorder, unspecified type; G54.0 Brachial plexus disorders; Z91.040 Latex allergy status; Z88.8 Allergy status to other drugs, medicaments and biological substances; Z79.51 Long term (current) use of inhaled steroids; Z79.899 Other long term (current) drug therapy; Z90.89 Acquired absence of other organs; Z98.890 Other specified postprocedural states
CPT/HCPCS: 36415; 43239; 74019; 74177; 74181; 76705; 80053; 81001; 81025; 82150; 85025; 86140; 87081; 96361; 96374; 96375; 96376; A9270-GY; C9113; G0378; J0696; J2175; J2250; J2405; J3010; J7030; J7120; Q9967

== ENCOUNTER 2019-08-07 09:21 | Observation (INO) | payer BC ==
[2019-08-07 09:44] LABS: CHLORIDE,CL 106 mEq/L (98-106); SODIUM,NA 141 mEq/L (136-145)
[2019-08-07] MEDS ORDERED: Ondansetron 4 MG Tab.DIS PO PRN (11:57)
[2019-08-07] MEDS ORDERED: Pantoprazole 40 MG Vial IVPUSH ONE (11:57)
[2019-08-07] MEDS ORDERED: Albuterol 0.083% 2.5 MG/3 ML Neb Soln NEB PRN ×2 (12:02→12:24)
[2019-08-07] MEDS ORDERED: HYDROmorphone 2 MG Tab PO PRN (12:02)
[2019-08-07] MEDS ORDERED: Albuterol 8 GM Inhaler INH PRN (12:02)
[2019-08-07] MEDS: Docusate Sodium 100 MG Cap PO SCH ×2 (12:26→19:37)
[2019-08-07] MEDS: Sodium Chloride 0.9% 1,000 ML IV SCH ×2 (12:26→20:36)
[2019-08-07] MEDS ORDERED: oxyCODONE 5 MG Tab PO PRN (14:13)
[2019-08-07] MEDS ORDERED: ONDANSETRON 4 MG PO PRN (15:00)
[2019-08-07] MEDS ORDERED: HYDROMORPHONE 2 MG PO PRN (15:00)
[2019-08-07] MEDS: Enoxaparin 40 MG/0.4 ML Syringe SUBCUT SCH (15:52)
[2019-08-07] MEDS: BUSPIRONE 15 MG PO SCH (19:38)
[2019-08-07] MEDS: FLUOXETINE 10 MG PO SCH (19:38)
[2019-08-07] MEDS: [UNRECOGNIZED DRUG - OTHER] NAS SCH (19:39)
[2019-08-07] MEDS ORDERED: busPIRone 5 MG Tab PO SCH (20:00)
[2019-08-07] MEDS ORDERED: Fluticasone Propionate Nasal Spray 16 GM Bottle NAS SCH (20:00)
[2019-08-07] MEDS: fentaNYL 100 MCG/2 ML SDV IVPUSH PRN (20:36)
[2019-08-08] MEDS: Sodium Chloride 0.9% 1,000 ML IV SCH ×2 (05:06→13:08)
[2019-08-08] MEDS: Docusate Sodium 100 MG Cap PO SCH ×2 (07:41→19:29)
[2019-08-08] MEDS: BUSPIRONE 15 MG PO SCH ×2 (07:41→19:29)
[2019-08-08 07:52] LABS: CHLORIDE,CL 106 mEq/L (98-106); SODIUM,NA 141 mEq/L (136-145)
[2019-08-08] MEDS ORDERED: Bisacodyl 10 MG Supp RECTAL ONE (09:32)
[2019-08-08] MEDS ORDERED: Ketorolac 30 MG/ML SDV IVPUSH PRN (09:32)
--- NOTE | 2019-08-08 10:56 | PCM.PN ---
- General Info Date of Service: 08/08/19 Admission Dx/Problem (Free Text): Abdominal pain s/p cholecystectomy Elevated liver enzymes Functional Status: Reports: Tolerating Diet, Ambulating, Urinating. Denies: Pain Controlled - Review of Systems General: Reports: Malaise. Denies: Fever, Fatigue HEENT: Reports: No Symptoms Pulmonary: Denies: Shortness of Breath, Cough Cardiovascular: Denies: Chest Pain Gastrointestinal: Reports: Abdominal Pain, Constipation. Denies: Nausea, Vomiting Genitourinary: Reports: No Symptoms Musculoskeletal: Reports: No Symptoms Skin: Reports: No Symptoms Neurological: Reports: No Symptoms - Patient Data Vitals - Most Recent: Last Vital Signs Temp 97.4 F 08/08/19 07:42 Pulse 72 08/08/19 07:42 Resp 16 08/08/19 07:42 BP 103/67 08/08/19 07:42 Pulse Ox 97 08/08/19 07:42 Weight - Most Recent: 160 lb I&O - Last 24 Hours: Intake & Output 08/07/19 08/08/19 08/08/19 22:59 06:59 14:59 Intake Total 1000 1000 Balance 1000 1000 Lab Results Last 24 Hours: Laboratory Results - last 24 hr 08/08/19 Range/Units 07:20 Sodium 141 (136-145) mEq/L Potassium 4.1 (3.5-5.0) mEq/L Chloride 106 (98-106) mEq/L Carbon Dioxide 26 (21-32) mmol/L BUN 9 (7-18) mg/dL Creatinine 0.7 (0.6-1.0) mg/dL Est Cr Clr Drug Dosing 113.03 mL/min Estimated GFR (MDRD) > 60 (>=60) mL/min Glucose 92 (75-99) mg/dL Calcium 8.8 (8.4-10.1) mg/dL Total Bilirubin 0.4 (0.0-1.0) mg/dL AST 94 H (15-37) U/L ALT 510 H* (12-78) U/L Alkaline Phosphatase 130 H (46-116) U/L Total Protein 6.2 L (6.4-8.2) g/dL Albumin 3.2 L (3.4-5.0) g/dL Med Orders - Current: Current Medications Albuterol (Ventolin Hfa) 0 gm INH Q4H PRN PRN Reason: Shortness of Breath Albuterol (Proventil Neb Soln) 2.5 mg NEB Q4H PRN PRN Reason: Shortness of Breath Docusate Sodium (Colace) 100 mg PO BID [facility] Last Admin: 08/08/19 07:41 Dose: 100 mg Enoxaparin Sodium (Lovenox) 40 mg SUBCUT Q24H [facility] Last Admin: 08/07/19 15:52 Dose: 40 mg Fentanyl (Sublimaze) 25 mcg IVPUSH Q6H PRN PRN Reason: Abdominal Pain Last Admin: 08/07/19 20:36 Dose: 25 mcg Fluoxetine HCl (Prozac) 10 mg PO BEDTIME [facility] Last Admin: 08/07/19 19:38 Dose: 10 mg Sodium Chloride (Normal Saline) 1,000 mls @ 125 mls/hr IV ASDIRECTED [facility] Last Admin: 08/08/19 05:06 Dose: 125 mls/hr [facility] Buspirone (15mg Tab) 7.5 mg PO BID [facility] Last Admin: 08/08/19 07:41 Dose: 7.5 mg [facility] Triamcinolone Acetonide Nasal 55mcg 1 spray SHELBY BEDTIME [facility] Last Admin: 08/07/19 19:39 Dose: 1 spray Ondansetron HCl (Zofran Odt) 4 mg PO Q4H PRN PRN Reason: nausea, able to take PO Last Admin: 08/07/19 17:37 Dose: 4 mg Oxycodone HCl (Oxycodone) 5 mg PO Q6H PRN PRN Reason: Pain Discontinued Medications Albuterol (Proventil Neb Soln) 2.5 mg NEB ASDIRECTED PRN PRN Reason: Shortness of Breath Bisacodyl (Dulcolax) 10 mg RECTAL ONETIME ONE Stop: 08/08/19 09:33 Last Admin: 08/08/19 10:17 Dose: 10 mg Buspirone HCl (Buspar) 7.5 mg PO BID [facility] Fluticasone Propionate (Flonase) 0 gm SHELBY BEDTIME [facility] Hydromorphone HCl (Dilaudid) 2 mg PO Q6H PRN PRN Reason: Pain Ketorolac Tromethamine (Toradol) 30 mg IVPUSH Q6H PRN PRN Reason: Pain Stop: 08/13/19 09:33 Last Admin: 08/08/19 10:19 Dose: 30 mg Ondansetron HCl (Zofran Odt) 4 mg PO Q4H PRN PRN Reason: nausea, able to take PO Pantoprazole Sodium (Protonix Iv) 40 mg IVPUSH ONETIME ONE Stop: 08/07/19 11:58 Last Admin: 08/07/19 12:26 Dose: 40 mg - Exam General: Alert, Oriented HEENT: Mucous Membr. Moist/Cove Neck: Supple Lungs: Clear to Auscultation, Normal Respiratory Effort Cardiovascular: Regular Rate, Regular Rhythm GI/Abdominal Exam: Normal Bowel Sounds, Soft, Distended, Tender Extremities: Normal Inspection, No Pedal Edema Skin: Warm, Dry Wound/Incisions: No Drainage. No: Erythema Neurological: No New Focal Deficit - Problem List & Annotations (1) Abdominal pain SNOMED Code(s): 49913826 Code(s): R10.9 - UNSPECIFIED ABDOMINAL PAIN Status: Acute Priority: High Current Visit: Yes (2) Elevated liver enzymes SNOMED Code(s): 471061461 Code(s): R74.8 - ABNORMAL LEVELS OF OTHER SERUM ENZYMES Status: Acute Priority: High Current Visit: Yes (3) S/P cholecystectomy SNOMED Code(s): 898687409, 27031651, 817199627 Code(s): Z90.49 - ACQUIRED ABSENCE OF OTHER SPECIFIED PARTS OF DIGESTIVE TRACT Status: Acute Priority: High Current Visit: Yes - Problem List Review Problem List Initiated/Reviewed/Updated: Yes - My Orders Last 24 Hours: My Active Orders 08/07/19 14:13 oxyCODONE 5 mg PO Q6H PRN 08/09/19 05:11 C-REACTIVE PROTEIN [CHEM] AM CBC WITH AUTO DIFF [HEME] AM COMPREHENSIVE METABOLIC PN,CMP [CHEM] AM - Assessment Assessment:: Abdominal Pain s/p cholecystectomy Elevated liver enzymes - Plan Plan:: Patient continues to complain of abdominal pain but is resting comfortably in bed, on her phone. Did eat 100% of her breakfast. Does still abdominal bloating, passing some gas. Bowel sounds are positive. Has not had a BM in many days and has been on pain meds since surgery. Abdominal incisions are intact, no redness. Tender with palpation. Liver enzymes are still elevated but improved, AST 94, ALT 510, Alk phos 130. Patient given a dose of IV Toradol for the discomfort. Dulcolax suppository for constipation. Encouraged to ambulate. Repeat labs in am. Possible discharge home tomorrow, weather pending.
[2019-08-08] MEDS ORDERED: Sodium Chloride 0.9% 1,000 ML IV SCH (17:00)
[2019-08-08] MEDS: Enoxaparin 40 MG/0.4 ML Syringe SUBCUT SCH (17:09)
[2019-08-08] MEDS: fentaNYL 100 MCG/2 ML SDV IVPUSH PRN (17:10)
[2019-08-08] MEDS: FLUOXETINE 10 MG PO SCH (19:28)
[2019-08-08] MEDS: [UNRECOGNIZED DRUG - OTHER] NAS SCH (19:29)
[2019-08-09] MEDS: BUSPIRONE 15 MG PO SCH (07:29)
[2019-08-09] MEDS: Docusate Sodium 100 MG Cap PO SCH (07:32)
[2019-08-09 07:39] LABS: CHLORIDE,CL 107 mEq/L (98-106); SODIUM,NA 141 mEq/L (136-145)
--- NOTE | 2019-08-09 11:33 | PCM.DCSUM1 ---
Discharge Summary - Hospital Course Free Text/Narrative:: sp gb surg from sunday in [place], had continued post surgical pain, as well as elevated LVT HPI Initial Comments: post surgical pain Diagnosis: Stroke: No - Discharge Data Discharge Date: 08/09/19 Discharge Disposition: Home, Self-Care 01 Condition: Good - Referral to Home Health Primary Care Physician: Kevin Byers MD - Patient Instructions Diet: GI Soft/Low Residue/Low Fiber Activity: As Tolerated Driving: May Drive Today Showering/Bathing: May Shower Wound/Incision Care: Keep Operative Site/Wound Site Clean and Dry Notify Provider of: Fever, Increased Pain, Nausea and/or Vomiting - Discharge Plan *PRESCRIPTION DRUG MONITORING PROGRAM REVIEWED*: Not Applicable *COPY OF PRESCRIPTION DRUG MONITORING REPORT IN PATIENT BRITNEY: Not Applicable Home Medications: Home Meds Acetaminophen [Tylenol Extra Strength] 500 mg PO ASDIRECTED PRN 05/16/18 [ History] Albuterol Sulfate 2.5 mg IH ASDIRECTED PRN 05/16/18 [History] Albuterol [Ventolin HFA] 1 - 2 puff INH Q4H PRN 05/16/18 [History] Desonide 1 applic TP DAILY PRN 05/16/18 [History] Ondansetron [Ondansetron ODT] 8 mg PO Q8H PRN 05/16/18 [History] Acetaminophen with Codeine [Tylenol with Codeine #3 Tablet] 1 tab PO ASDIRECTED PRN 07/08/19 [History] Gabapentin [Neurontin] 2 tab PO TID 07/08/19 [History] Lidocaine 5% 1 applic TOP Q4H PRN 07/08/19 [History] Meloxicam 15 mg PO DAILY 07/08/19 [History] Methylphenidate HCl [Ritalin] 30 mg PO DAILY 07/08/19 [History] Ranitidine HCl [Ranitidine] 1 cap PO BEDTIME 07/08/19 [History] Triamcinolone Acetonide [24 Hour Nasal Allergy] 1 spray SHELBY BEDTIME 07/08/19 [ History] medroxyPROGESTERone Acetate [Depo-Provera] 1 injection IM ASDIRECTED 07/08/19 [ History] FLUoxetine [PROzac] 10 mg PO BEDTIME #30 cap 07/11/19 [Rx] Pantoprazole Sodium [Protonix] 40 mg PO DAILY #30 tablet. 07/11/19 [Rx] busPIRone [Buspar] 7.5 mg PO BID #30 tab 07/11/19 [Rx] Acetaminophen/HYDROcodone [[place] 325-5 MG] 1 - 2 tab PO Q6H PRN 08/07/19 [ History] HYDROmorphone [Dilaudid] 2 mg PO Q6H PRN 08/07/19 [History] Oxygen Therapy Mode: Room Air - Discharge Summary/Plan Comment DC Time >30 min.: No Discharge Summary/Plan Comment: pt advised is feeling much better, still has some minor discomfort over surgical site area, the areas are healing well without redness, swelling or drainage. her LFT are coming down, suspect they were elevated post surg, less like a CBD Obstruction. However, advised pt and she agrees to return on sunday for repeat lab work and be seen in the clinic, return to ER sooner if worse or problems , - Patient Data Vitals - Most Recent: Last Vital Signs Temp 36.3 C 08/09/19 08:00 Pulse 71 08/09/19 08:00 Resp 16 08/09/19 08:00 BP 90/54 L 08/09/19 08:00 Pulse Ox 97 08/09/19 08:00 Weight - Most Recent: 72.575 kg Lab Results - Last 24 hrs: Laboratory Results - last 24 hr 08/07/19 08/09/19 08/09/19 Range/Units 12:36 07:00 07:00 WBC 7.0 (5.0-10.0) 10^3/uL RBC 4.37 (4.00-5.50) 10^6/uL Hgb 13.5 (12.0-16.0) g/dL Hct 40.3 (37.0-47.0) % MCV 92.2 (82.0-94.0) fL MCH 30.9 (27.0-32.0) pg MCHC 33.5 (33.0-38.0) g/dL RDW Coeff of Ana María 13.2 (11.0-15.0) % Plt Count 280 (150-400) 10^3/uL Neut % (Auto) 48.5 (35-85) % Lymph % (Auto) 33.4 (10-55) % [place] % (Auto) 7.9 (0-16) % Eos % (Auto) 9.6 H (0-5) % Baso % (Auto) 0.6 (0-3) % Neut # (Auto) 3.39 (1.80-7.00) 10^3/uL Lymph # (Auto) 2.33 (1.00-4.80) 10^3/uL [place] # (Auto) 0.55 (0.00-0.80) 10^3/uL Eos # (Auto) 0.67 H (0.00-0.45) 10^3/uL Baso # (Auto) 0.04 10^3/uL Sodium 141 (136-145) mEq/L Potassium 4.0 (3.5-5.0) mEq/L Chloride 107 H (98-106) mEq/L Carbon Dioxide 26 (21-32) mmol/L BUN 10 (7-18) mg/dL Creatinine 0.9 (0.6-1.0) mg/dL Est Cr Clr Drug Dosing 87.91 mL/min Estimated GFR (MDRD) > 60 (>=60) mL/min Glucose 103 H (75-99) mg/dL Calcium 9.1 (8.4-10.1) mg/dL Total Bilirubin 0.4 (0.0-1.0) mg/dL AST 41 H (15-37) U/L ALT 389 H* (12-78) U/L Alkaline Phosphatase 126 H (46-116) U/L C-Reactive Protein < 0.2 L (0.2-0.8) mg/dL Total Protein 6.9 (6.4-8.2) g/dL Albumin 3.5 (3.4-5.0) g/dL Hepatitis A IgM Ab Negative (Negative) Hep Bs Antigen Negative (Negative) Hep B Core IgM Ab Negative (Negative) Hepatitis C Antibody 0.3 (0.0-0.9) s/co ratio Med Orders - Current: Current Medications Albuterol (Ventolin Hfa) 0 gm INH Q4H PRN PRN Reason: Shortness of Breath Albuterol (Proventil Neb Soln) 2.5 mg NEB Q4H PRN PRN Reason: Shortness of Breath Docusate Sodium (Colace) 100 mg PO BID [facility] Last Admin: 08/09/19 07:32 Dose: 100 mg Enoxaparin Sodium (Lovenox) 40 mg SUBCUT Q24H [facility] Last Admin: 08/08/19 17:09 Dose: 40 mg Fentanyl (Sublimaze) 25 mcg IVPUSH Q6H PRN PRN Reason: Abdominal Pain Last Admin: 08/08/19 17:10 Dose: 25 mcg Fluoxetine HCl (Prozac) 10 mg PO BEDTIME [facility] Last Admin: 08/08/19 19:28 Dose: 10 mg Sodium Chloride (Normal Saline) 1,000 mls @ 50 mls/hr IV ASDIRECTED [facility] Last Admin: 08/08/19 13:08 Dose: 125 mls/hr [facility] Buspirone (15mg Tab) 7.5 mg PO BID [facility] Last Admin: 08/09/19 07:29 Dose: 7.5 mg [facility] Triamcinolone Acetonide Nasal 55mcg 1 spray SHELBY BEDTIME [facility] Last Admin: 08/08/19 19:29 Dose: 1 spray Ondansetron HCl (Zofran Odt) 4 mg PO Q4H PRN PRN Reason: nausea, able to take PO Last Admin: 08/07/19 17:37 Dose: 4 mg Oxycodone HCl (Oxycodone) 5 mg PO Q6H PRN PRN Reason: Pain Discontinued Medications Albuterol (Proventil Neb Soln) 2.5 mg NEB ASDIRECTED PRN PRN Reason: Shortness of Breath Bisacodyl (Dulcolax) 10 mg RECTAL ONETIME ONE Stop: 08/08/19 09:33 Last Admin: 08/08/19 10:17 Dose: 10 mg Buspirone HCl (Buspar) 7.5 mg PO BID [facility] Fluticasone Propionate (Flonase) 0 gm SHELBY BEDTIME [facility] Hydromorphone HCl (Dilaudid) 2 mg PO Q6H PRN PRN Reason: Pain Sodium Chloride (Normal Saline) 1,000 mls @ 50 mls/hr IV ASDIRECTED [facility] Ketorolac Tromethamine (Toradol) 30 mg IVPUSH Q6H PRN PRN Reason: Pain Stop: 08/13/19 09:33 Last Admin: 08/08/19 10:19 Dose: 30 mg Ondansetron HCl (Zofran Odt) 4 mg PO Q4H PRN PRN Reason: nausea, able to take PO Pantoprazole Sodium (Protonix Iv) 40 mg IVPUSH ONETIME ONE Stop: 08/07/19 11:58 Last Admin: 08/07/19 12:26 Dose: 40 mg
== END 2019-08-09 12:30 | disposition home or self-care (01) ==
LOC: CC.FCMC 09:21 → UNDOADMOB 10:11 → CC.MS 10:11
PROVIDERS: ADMIT Family Medicine; ATTEND Family Medicine
DX: G89.18 Other acute postprocedural pain (principal); R10.9 Unspecified abdominal pain; J45.909 Unspecified asthma, uncomplicated; K21.9 Gastro-esophageal reflux disease without esophagitis; F41.8 Other specified anxiety disorders; Z88.8 Allergy status to other drugs, medicaments and biological substances; Z90.49 Acquired absence of other specified parts of digestive tract; Z91.040 Latex allergy status; Z79.899 Other long term (current) drug therapy
CPT/HCPCS: 36415; 74019; 80053; 80074; 81001; 82150; 85025; 86140; 96361; 96372; 96374; 96375; 96376; A9270-GY; C9113; G0378; J1650; J1885; J3010; J7030

== ENCOUNTER 2020-07-11 23:54 | Emergency (ER) | payer BC ==
[2020-07-12] MEDS ORDERED: Ketorolac 60 MG/2 ML SDV IM ONE (00:20)
[2020-07-12] MEDS ORDERED: Ondansetron 4 MG/2 ML SDV IM ONE (00:22)
--- NOTE | 2020-07-12 00:25 | EDM.PDOC ---
ED HPI GENERAL MEDICAL PROBLEM - General Chief Complaint: General Stated Complaint: R) sided stomach pain Time Seen by Provider: 07/12/20 00:09 Source of Information: Reports: Patient History Limitations: Reports: No Limitations - History of Present Illness INITIAL COMMENTS - FREE TEXT/NARRATIVE: Patient to the emergency department complaining of some right upper quadrant and epigastric abdominal pain since 1030 with nausea vomiting. The patient denies any ear, nose, throat symptoms denies any unusual neck, back pain or stiffness denies any chest pain or shortness of breath denies any constipation, denies any diarrhea, denies any UTI type symptoms. The patient denies any fever or chills. Onset: Today (Symptoms started about 1030 tonight.) Location: Reports: Abdomen Quality: Reports: Ache Severity: Moderate Improves with: Reports: None Worsens with: Reports: None Associated Symptoms: Reports: Nausea/Vomiting. Denies: Chest Pain, Cough, Shortness of Breath Treatments [employer] SAL[employer]ANT: Reports: Other (see below) (none) Right Abdomen Pain Score (Numeric/FACES): 10 - Related Data Allergies Allergy/AdvReac Type Severity Reaction Status Date / Time latex Allergy Cannot Verified 07/12/20 00:14 Remember loteprednol [From Alrex] Allergy Cannot Verified 07/12/20 00:14 Remember Home Meds: Home Meds Albuterol Sulfate 2.5 mg IH ASDIRECTED PRN 05/16/18 [History] Albuterol [Ventolin HFA] 1 - 2 puff INH Q4H PRN 05/16/18 [History] Desonide 1 applic TP DAILY PRN 05/16/18 [History] Ondansetron [Ondansetron ODT] 8 mg PO Q8H PRN 05/16/18 [History] Gabapentin [Neurontin] 2 tab PO TID 07/08/19 [History] Methylphenidate HCl [Ritalin] 30 mg PO DAILY 07/08/19 [History] Pantoprazole Sodium [Protonix] 40 mg PO DAILY #30 tablet. 07/11/19 [Rx] busPIRone [Buspar] 7.5 mg PO BID #30 tab 07/11/19 [Rx] Past Medical History HEENT History: Reports: Allergic Rhinitis, Otitis Media, Sinusitis Respiratory History: Reports: Asthma, Bronchitis, Recurrent Genitourinary History: Reports: Other (See Below) Other Genitourinary History: kidney infections PERSONAL BANKER History: Reports: Endometriosis, Polycystic Ovaries Musculoskeletal History: Reports: Other (See Below) Other Musculoskeletal History: neck injury Neurological History: Reports: Other (See Below) Other Neuro History: brain tumor removed Psychiatric History: Reports: Anxiety, Depression - Past Surgical History HEENT Surgical History: Reports: Adenoidectomy, Tonsillectomy Other HEENT Surgeries/Procedures: T & A removal GI Surgical History: Reports: Cholecystectomy Neurological Surgical History: Reports: None Social & Family History - Caffeine Use Caffeine Use: Reports: None - Living Situation & Occupation Living situation: Reports: with Family Occupation: Employed ED ROS GENERAL - Review of Systems Review Of Systems: See Below Constitutional: Reports: No Symptoms. Denies: Fever, Chills HEENT: Reports: No Symptoms Respiratory: Reports: No Symptoms Cardiovascular: Reports: No Symptoms GI/Abdominal: Reports: Abdominal Pain, Nausea, Vomiting. Denies: Constipation, Diarrhea, Distension : Reports: No Symptoms Musculoskeletal: Reports: No Symptoms. Denies: Neck Pain, Back Pain Skin: Reports: No Symptoms Neurological: Reports: No Symptoms ED EXAM, GENERAL - Physical Exam Exam: See Below Exam Limited By: No Limitations General Appearance: Alert, WD/WN Head: Atraumatic, Normocephalic Neck: Normal Inspection, Supple, Non-Tender, Full Range of Motion Respiratory/Chest: No Respiratory Distress, Lungs Clear, Normal Breath Sounds, Chest Non-Tender Cardiovascular: Normal Peripheral Pulses, Regular Rate, Rhythm, No Murmur Peripheral Pulses: 2+: Radial (L) GI/Abdominal: Normal Bowel Sounds, Soft, No Distention, Tender (Tenderness is more in the epigastric area with palpation). No: Rigid Back Exam: Normal Inspection, Full Range of Motion Extremities: Normal Inspection, Normal Range of Motion, Non-Tender, Normal Capillary Refill Neurological: Alert, Oriented, Normal Cognition, Normal Gait, No Motor/Sensory Deficits Psychiatric: Normal Affect, Normal Mood Skin Exam: Warm, Dry, Intact, Normal Color Course - Vital Signs Text/Narrative:: 0025 the patient has been evaluated in the emergency department blood work is been ordered and lab is been called to come and collect the samples. The patient has provided a urine for her urinalysis. The patient will be given Toradol 60 mg IM and Zofran 4 mg IM. 0057 the patient CBC and general chemistries as well as urinalysis are all back and are all essentially negative see all of them for details. The patient was given Toradol and Zofran as listed above which has decreased her symptoms. The patient be discharged home should be advised to increase her fluids, should be given Zofran 4 mg every 6 hours as needed for any nausea vomiting, she will be advised to avoid any spicy greasy foods no milk or milk products until well. She is also advised to follow-up the family doctor later this week and return to emergency department sooner if worse or any problems Last Recorded V/S: Last Vital Signs Temp 37.1 C 07/12/20 00:29 Pulse 94 07/12/20 00:29 Resp 20 07/12/20 00:29 BP 110/84 07/12/20 00:29 Pulse Ox 99 07/12/20 00:29 - Orders/Labs/Meds Labs: Laboratory Tests 07/12/20 07/12/20 07/12/20 Range/Units 00:19 00:30 00:30 WBC 13.6 H (5.0-10.0) 10^3/uL RBC 4.58 (4.00-5.50) 10^6/uL Hgb 14.1 (12.0-16.0) g/dL Hct 41.2 (37.0-47.0) % MCV 90.0 (82.0-94.0) fL MCH 30.8 (27.0-32.0) pg MCHC 34.2 (33.0-38.0) g/dL RDW Coeff of Ana María 12.2 (11.0-15.0) % Plt Count 381 (150-400) 10^3/uL Neut % (Auto) 49.3 (35-85) % Lymph % (Auto) 41.1 (10-55) % [facility] % (Auto) 8.0 (0-16) % Eos % (Auto) 1.4 (0-5) % Baso % (Auto) 0.2 (0-3) % Neut # (Auto) 6.69 (1.80-7.00) 10^3/uL Lymph # (Auto) 5.57 H (1.00-4.80) 10^3/uL [facility] # (Auto) 1.08 H (0.00-0.80) 10^3/uL Eos # (Auto) 0.19 (0.00-0.45) 10^3/uL Baso # (Auto) 0.03 10^3/uL Sodium 140 (136-145) mEq/L Potassium 3.8 (3.5-5.0) mEq/L Chloride 104 (98-106) mEq/L Carbon Dioxide 21 (21-32) mmol/L BUN 15 (7-18) mg/dL Creatinine 0.9 (0.6-1.0) mg/dL Est Cr Clr Drug Dosing 88.97 mL/min Estimated GFR (MDRD) > 60 (>=60) mL/min Glucose 89 (75-99) mg/dL Calcium 9.0 (8.4-10.1) mg/dL Total Bilirubin 0.4 (0.0-1.0) mg/dL AST 18 (15-37) U/L ALT 21 (12-78) U/L Alkaline Phosphatase 62 (46-116) U/L C-Reactive Protein 1.3 H (0.2-0.8) mg/dL Total Protein 7.5 (6.4-8.2) g/dL Albumin 3.4 (3.4-5.0) g/dL Amylase 55 (25-115) U/L Lipase 135 (73-393) U/L HCG, Qual Urine Color Yellow (YELLOW) Urine Appearance Slightly cloudy (CLEAR) Urine pH 7.0 (4.5-8.0) Ur Specific [place] 1.025 H (1.003-1.020) Urine Protein Negative (NEGATIVE) mg/dL Urine Glucose (UA) Negative (NEGATIVE) mg/dL Urine Ketones Negative (NEGATIVE) mg/dL Urine Occult Blood Negative (NEGATIVE) Urine Nitrite Negative (NEGATIVE) Urine Bilirubin Negative (NEGATIVE) Urine Urobilinogen 0.2 (0.2-1.0) EU/dL Ur Leukocyte Esterase Trace H (NEGATIVE) Urine RBC 0-5 (0-5) /HPF Urine WBC 0-5 (0-5) /HPF Ur Squamous Epith Cells Moderate H (NOT SEEN) /HPF Urine Bacteria Rare (NOT SEEN) /HPF Urine Mucus Not seen (NOT SEEN) /HPF 07/12/20 Range/Units 00:30 WBC (5.0-10.0) 10^3/uL RBC (4.00-5.50) 10^6/uL Hgb (12.0-16.0) g/dL Hct (37.0-47.0) % MCV (82.0-94.0) fL MCH (27.0-32.0) pg MCHC (33.0-38.0) g/dL RDW Coeff of Ana María (11.0-15.0) % Plt Count (150-400) 10^3/uL Neut % (Auto) (35-85) % Lymph % (Auto) (10-55) % [facility] % (Auto) (0-16) % Eos % (Auto) (0-5) % Baso % (Auto) (0-3) % Neut # (Auto) (1.80-7.00) 10^3/uL Lymph # (Auto) (1.00-4.80) 10^3/uL [facility] # (Auto) (0.00-0.80) 10^3/uL Eos # (Auto) (0.00-0.45) 10^3/uL Baso # (Auto) 10^3/uL Sodium (136-145) mEq/L Potassium (3.5-5.0) mEq/L Chloride (98-106) mEq/L Carbon Dioxide (21-32) mmol/L BUN (7-18) mg/dL Creatinine (0.6-1.0) mg/dL Est Cr Clr Drug Dosing mL/min Estimated GFR (MDRD) (>=60) mL/min Glucose (75-99) mg/dL Calcium (8.4-10.1) mg/dL Total Bilirubin (0.0-1.0) mg/dL AST (15-37) U/L ALT (12-78) U/L Alkaline Phosphatase (46-116) U/L C-Reactive Protein (0.2-0.8) mg/dL Total Protein (6.4-8.2) g/dL Albumin (3.4-5.0) g/dL Amylase (25-115) U/L Lipase (73-393) U/L HCG, Qual Negative Urine Color (YELLOW) Urine Appearance (CLEAR) Urine pH (4.5-8.0) Ur Specific [place] (1.003-1.020) Urine Protein (NEGATIVE) mg/dL Urine Glucose (UA) (NEGATIVE) mg/dL Urine Ketones (NEGATIVE) mg/dL Urine Occult Blood (NEGATIVE) Urine Nitrite (NEGATIVE) Urine Bilirubin (NEGATIVE) Urine Urobilinogen (0.2-1.0) EU/dL Ur Leukocyte Esterase (NEGATIVE) Urine RBC (0-5) /HPF Urine WBC (0-5) /HPF Ur Squamous Epith Cells (NOT SEEN) /HPF Urine Bacteria (NOT SEEN) /HPF Urine Mucus (NOT SEEN) /HPF Meds: Medications Discontinued Medications Generic Name Dose Route Start Last Admin Trade Name Oneyda PRN Reason Stop Dose Admin Ketorolac Tromethamine 60 mg 07/12/20 00:20 07/12/20 00:45 Toradol IM 07/12/20 00:21 60 mg ONETIME ONE Administration Ondansetron HCl 4 mg 07/12/20 00:22 07/12/20 00:46 Zofran IM 07/12/20 00:23 4 mg ONETIME ONE Administration Departure - Departure Time of Disposition: 00:58 Disposition: Home, Self-Care 01 Condition: Good Clinical Impression: Gastroenteritis - Discharge Information *PRESCRIPTION DRUG MONITORING PROGRAM REVIEWED*: Not Applicable *COPY OF PRESCRIPTION DRUG MONITORING REPORT IN PATIENT BRITNEY: Not Applicable Forms: ED Department Discharge Additional Instructions: Increase fluids Avoid milk or milk products and spicy greasy foods until well Zofran 4 mg every 6 hours as needed for any nausea or vomiting as you have at home Follow-up with your family doctor later this week Return to the emergency department sooner if worse or any problems Sepsis Event Note (ED) - Focused Exam Vital Signs: Vital Signs Temp Pulse Resp BP Pulse Ox 07/12/20 00:29 37.1 C 94 20 110/84 99 - Problem List & Annotations (1) Gastroenteritis SNOMED Code(s): 49134167 Code(s): K52.9 - NONINFECTIVE GASTROENTERITIS AND COLITIS, UNSPECIFIED Status: Acute Priority: Medium Current Visit: Yes - Problem List Review Problem List Initiated/Reviewed/Updated: Yes - Assessment/Plan Plan: The patient's past medical history, past surgical history, social history and past family medical history was reviewed see the nursing notes for details
[2020-07-12 00:52] LABS: CHLORIDE,CL 104 mEq/L (98-106); SODIUM,NA 140 mEq/L (136-145)
== END 2020-07-12 01:03 | disposition home or self-care (01) ==
LOC: SUPCPDRO 23:54 → CC.ED 23:54
DX: K52.9 Noninfective gastroenteritis and colitis, unspecified (principal); J45.909 Unspecified asthma, uncomplicated; F41.9 Anxiety disorder, unspecified; F32.9 Major depressive disorder, single episode, unspecified; Z79.899 Other long term (current) drug therapy; Z91.040 Latex allergy status
CPT/HCPCS: 36415; 80053; 81001; 82150; 83690; 84703; 85025; 86140; 96372; 99284; J1885; J2405